=== PATIENT | female | born 1975 | race Caucasian/White ===

== ENCOUNTER → 2018-08-13 | Outpatient (CLI) | payer BC, MEDICARE ==
[~2018-08-13] MED LIST: ACET-1966 PO; ALP1 PO; B STRESS; BUTA-324 PO; CAR350 PO; DIAZ-305 PO; DIP5L PO; DIVA500T98 PO; DULO60CA51 PO; FAM20 PO; IBU600 PO; LEVO50 PO; MAGN200T6 PO; ONDA4SOL10 PO; OXYC-865 PO; PER PO; PRE50 PO; SPIR50TA31 PO; TRA50 PO; VILA40TA PO
--- NOTE | 2018-08-16 09:53 | RADIOLOGY IMAGING REPORT ---
FACILITY: [facility] [place] PATIENT NAME: EMILIE SALAMANCA : [id number] MR: [id number] V: [id number] EXAM DATE: [id number] ORDERING PHYSICIAN: SERVANDO HUBBARD TECHNOLOGIST: Lexy Dinh PROCEDURE:BILATERAL DIGITAL SCREENING MAMMOGRAM WITH CAD ASSISTED INTERPRETATION & 3D TOMOSYNTHESIS COMPARISON:Prior mammograms 05/18/17, 11/16/14. INDICATIONS:SCREENING FINDINGS: The breasts are heterogeneously dense which can obscure small masses. The parenchymal pattern has remained stable allowing for difference in mammographic technique & patient positioning. DIAGNOSTIC CATEGORY 1--NEGATIVE. RECOMMENDATIONS: ROUTINE MAMMOGRAM AND CLINICAL EVALUATION. IMPRESSION: BIRADS 1: Negative. No significant abnormality is seen. Dictated by: Paige Saldaña M.D. on 08/13/2018 at 15:19 Transcribed by: HAIM on 08/13/2018 at 15:34 Approved by: Paige Saldaña M.D. on 08/16/2018 at 9:52 [facility]
== END ==
LOC: MAMO 02:15
PROVIDERS: ATTEND Obstetrics & Gynecology
DX: Z12.31 Encounter for screening mammogram for malignant neoplasm of breast (principal)
CPT/HCPCS: 77063; 77067

== ENCOUNTER → 2018-12-23 | Outpatient (CLI) | payer BC, MEDICARE ==
--- NOTE | 2018-12-23 16:30 | RADIOLOGY IMAGING REPORT ---
[place] [facility] [place]IENT NAME: Contreras Funez : 1975 MR: [id number] V: [id number] EXAM DATE: ORDERING PHYSICIAN: DMITRIY TAVERAS TECHNOLOGIST: Location: [facility] Patient: Contreras Funez : 1975 Visit/Account:[id number] Date of Sevice: 12/23/2018 MRI left shoulder Indication: Left shoulder pain. No injury Comparison: None available. Technique: Multiplanar multisequence MR images were obtained through the left shoulder. Findings: Rotator cuff: There is moderate tendinopathy with mild undersurface tearing of distal supraspinatus fibers. There i s also minimal undersurface tearing distal anterior infraspinatus and the right mild tendinopathy dis maty supraspinatus. The teres minor is intact. There is tendinopathy and mild partial tearing the supe rior fibers of the subscapularis.. Biceps tendon: Mild tendinopathy intra-articular portion biceps tendon. Extra-articular portion of the long head of biceps tendon appears unremarkable within the bicipital g roove. AC joint and acromion: Moderate to severe acromioclavicular degenerative changes. Labrum and capsular ligaments: There is irregular nondisplaced tearing superior labrum seen without para labral cyst formation or la bral detachment. Capsular ligaments are intact with no evidence of focal abnormality. Bones and cartilage: No acute fracture-dislocation. Nonspecific mild focal edema like signal within the superior bony lidya oid may relate to mild stress change. No focal chondral defect glenohumeral joint cartilage.. Effusion, bursitis: No significant glenohumeral joint effusion. No significant fluid seen within the subacromial/subdeltoid bursa. IMPRESSION: 1. Moderate to severe AC joint degenerative changes noted as above. 2. Moderate tendinopathy and mild undersurface tearing distal supraspinatus. 3. Nondisplaced tearing superior labrum Report Dictated By: Michael Bacon MD at 12/23/2018 4:18 PM Report E-Signed By: Michael Bacon MD at 12/23/2018 4:22 PM WSN:[id number]
== END ==
LOC: MRI 00:35
PROVIDERS: ATTEND Family Medicine
DX: M19.012 Primary osteoarthritis, left shoulder (principal)